=== PATIENT | female | born 1990 | race Caucasian/White ===

== ENCOUNTER → 2017-08-25 | Outpatient (CLI) | payer MEDICAID | LOC: FIMAGING 07:17 | PROVIDERS: ATTEND Midwife | DX: O09.292 Supervision of pregnancy with other poor reproductive or obstetric history, second trimester (principal); Z3A.20 20 weeks gestation of pregnancy ==

== ENCOUNTER → 2017-09-24 | Outpatient (CLI) | payer MEDICAID | LOC: FIMAGING 13:42 | PROVIDERS: ATTEND Midwife | DX: Z34.92 Encounter for supervision of normal pregnancy, unspecified, second trimester (principal); Z3A.24 24 weeks gestation of pregnancy ==

== ENCOUNTER → 2017-10-13 | Outpatient (CLI) | payer MEDICAID | LOC: FIMAGING 11:36 | PROVIDERS: ATTEND Midwife | DX: O36.5920 Maternal care for other known or suspected poor fetal growth, second trimester, not applicable or unspecified (principal); O41.02X0 Oligohydramnios, second trimester, not applicable or unspecified; Z3A.27 27 weeks gestation of pregnancy | CPT/HCPCS: 86644-90; 86645-90; 86777-90; 86778-90 ==

== ENCOUNTER → 2017-10-22 | Outpatient (CLI) | payer MEDICAID | LOC: FIMAGING 09:41 | PROVIDERS: ATTEND Midwife | DX: O36.5930 Maternal care for other known or suspected poor fetal growth, third trimester, not applicable or unspecified (principal); O34.219 Maternal care for unspecified type scar from previous cesarean delivery; O99.213 Obesity complicating pregnancy, third trimester; E66.9 Obesity, unspecified; Z3A.28 28 weeks gestation of pregnancy ==

== ENCOUNTER → 2017-10-27 | Outpatient (CLI) | payer MEDICAID | LOC: FIMAGING 12:29 | PROVIDERS: ATTEND Midwife | DX: O26.03 Excessive weight gain in pregnancy, third trimester (principal); O36.5930 Maternal care for other known or suspected poor fetal growth, third trimester, not applicable or unspecified; O09.293 Supervision of pregnancy with other poor reproductive or obstetric history, third trimester; Z3A.29 29 weeks gestation of pregnancy ==

== ENCOUNTER → 2017-12-01 | Outpatient (CLI) | payer MEDICAID | LOC: FIMAGING 11:46 | PROVIDERS: ATTEND Midwife | DX: Z36.89 Encounter for other specified antenatal screening (principal); Z3A.34 34 weeks gestation of pregnancy ==

== ENCOUNTER → 2017-12-08 | Outpatient (CLI) | payer MEDICAID | LOC: FIMAGING 09:29 | PROVIDERS: ATTEND Midwife | DX: O36.5930 Maternal care for other known or suspected poor fetal growth, third trimester, not applicable or unspecified (principal); Z3A.34 34 weeks gestation of pregnancy ==